=== PATIENT | female | born 1965 | race Two or more races ===

== ENCOUNTER 2024-03-11 06:18 | Day surgery (SDC) | payer OTHER ==
[~2024-03-11 06:18] MED LIST: CLONAZEPAM0.5 M1 PO; PRAVASTATIN SOD10 MG PO; PROZAC10 M1 PO; SYNTHROID75 MCG PO; TRAZODONE HCL150 MG PO
[2024-03-11] MEDS ORDERED: CEFAZOLIN SODIUM 1,000 MG VIAL IV ONE (12:45)
[2024-03-11] MEDS ORDERED: CHLORHEXIDINE GLUCONATE 120 ML BOTTLE TOP ONE (12:45)
[2024-03-11] MEDS ORDERED: MORPHINE SULFATE 4 MG/ML VIAL IV ONE (14:15)
== END 2024-03-11 15:50 | disposition home or self-care (01) ==
LOC: CIR.AMB 06:18
PROVIDERS: ATTEND Surgery
DX: D48.61 Neoplasm of uncertain behavior of right breast (principal); N60.21 Fibroadenosis of right breast; N60.81 Other benign mammary dysplasias of right breast; R92.1 Mammographic calcification found on diagnostic imaging of breast; Z91.041 Radiographic dye allergy status